=== PATIENT | female | born 1990 | race African-American/Black ===

== ENCOUNTER 2024-01-08 19:11 | Emergency (ER) | payer MEDICAID ==
[~2024-01-08] VITALS: Ht 167.6 cm; Wt 70.3 kg
[2024-01-08] MEDS ORDERED: MUPIROCIN OINT 2% 22 GM TUBE ONE (20:12)
[2024-01-08] MEDS: MUPIROCIN OINT 2% 22 GM TUBE TP ONE (20:13)
[2024-01-08 20:54] VITALS: BP 159/99; TEMP 98.5; O2SAT 98
== END 2024-01-08 20:30 | disposition home or self-care (01) ==
LOC: ER 19:14
DX: M21.611 Bunion of right foot (principal)

== ENCOUNTER 2024-09-29 16:26 | Emergency (ER) | payer MEDICAID ==
[~2024-09-29] VITALS: Ht 162.6 cm; Wt 68.0 kg
[2024-09-29 16:53] VITALS: BP 126/77; TEMP 98.2; O2SAT 98
== END 2024-09-29 17:11 | disposition home or self-care (01) ==
LOC: ER 16:29
DX: S09.8XXA Other specified injuries of head, initial encounter (principal); R51.9 Headache, unspecified; R11.0 Nausea; W20.8XXA Other cause of strike by thrown, projected or falling object, initial encounter; Y93.89 Activity, other specified; Y92.89 Other specified places as the place of occurrence of the external cause; Y99.8 Other external cause status

== ENCOUNTER 2025-03-04 19:17 | Emergency (ER) | payer MEDICAID ==
[~2025-03-04] VITALS: Ht 165.1 cm; Wt 67.6 kg
[2025-03-04 23:19] VITALS: BP 159/96; TEMP 98.6; O2SAT 100
== END 2025-03-04 23:20 | disposition home or self-care (01) ==
LOC: ER 19:19
DX: I10 Essential (primary) hypertension (principal); R07.89 Other chest pain